=== PATIENT | male | born 1980 | race Caucasian/White ===

== ENCOUNTER 2017-12-21 17:04 | Emergency (ER) | payer MEDICAID ==
[~2017-12-21] VITALS: Ht 170.2 cm; Wt 113.4 kg
[2017-12-21 18:58] VITALS: BP 153/71
== END 2017-12-21 18:18 | disposition home or self-care (01) ==
LOC: ED 17:04
DX: M25.562 Pain in left knee (principal); E78.00 Pure hypercholesterolemia, unspecified
CPT/HCPCS: J1885; J7512